=== PATIENT | female | born 1980 | race Caucasian/White ===

== ENCOUNTER 2017-08-22 15:07 | Emergency (ER) | payer BC, OTHER ==
[~2017-08-22] VITALS: Ht 160 cm; Wt 59.9 kg
[2017-08-22] MEDS ORDERED: HYDROCODONE/APAP 5/325MG 1 EACH TABLET ONE (15:58)
[2017-08-22] MEDS ORDERED: ONDANSETRON 4 MG TAB.RAPDIS ONE (15:58)
[2017-08-22] MEDS ORDERED: HYDROCODONE/APAP 10/325MG 1 EA TABLET ONE (15:59)
[2017-08-22] MEDS ORDERED: HYDROCODONE/APAP 10/325MG 1 EA TABLET PO ONE (16:00)
[2017-08-22] MEDS ORDERED: ONDANSETRON 4 MG TAB.RAPDIS SL ONE (16:00)
[2017-08-22 16:10] LABS: APPEARANCE,URINE Clear (CLEAR); BILIRUBIN,URINE Negative (NEGATIVE); BLOOD, URINE Trace-intact Ery/uL (NEGATIVE); COLOR,URINE Yellow (YELLOW); KETONES,URINE Negative (NEGATIVE); LEUKOCYTE ESTERASE ,URINE Moderate (NEGATIVE); NITRITE, URINE Negative (NEGATIVE); PROTEIN,URINE Negative (NEGATIVE); UGLUCOSE Negative (NEGATIVE); UROBILINOGEN,URINE 0.2 EU/dL (0.2)
[2017-08-22 16:21] LABS: RBC,URINE 0-3 /HPF (0-2)
[2017-08-22 16:22] LABS: BACTERIA,URINE Few /HPF (None Seen); SQUAMOUS EPITHELIAL CELL,UR Moderate /HPF (None Seen)
[2017-08-22 18:20] VITALS: BP 139/88
== END 2017-08-22 18:20 | disposition home or self-care (01) ==
LOC: ER 15:09
DX: N39.0 Urinary tract infection, site not specified (principal); B02.9 Zoster without complications; Z60.2 Problems related to living alone
CPT/HCPCS: 71045-TC; 81000-TC; 84703-TC; A4606; Q0162; Z7610